=== PATIENT | female | born 1945 | race Caucasian/White ===

== ENCOUNTER → 2018-01-18 14:15 | Outpatient (CLI) | payer MEDICARE, BC ==
[2014-08-02 12:11] VITALS: BMI 48.0
[~2018-01-18 14:15] MED LIST: BAYER CHEWABLE81 MG PO; CYMBALTA60 MG PO; DIOVAN320 MG PO; K-TAB10 MEQ PO; LASIX40 MG PO; LEVAQUIN750 MG PO; ULTRAM50 MG PO
[2018-01-19 11:17] LABS: IMMUNOGLOBULIN A 17 mg/dL (64-422); IMMUNOGLOBULIN G 263 mg/dL (700-1600); IMMUNOGLOBULIN M 7 mg/dL (26-217)
[2018-01-20 20:08] LABS: IMMUNOGLOBULIN E <2 IU/mL (0-100)
== END | disposition home or self-care (01) ==
LOC: D.RAD 14:15
PROVIDERS: Allergy & Immunology
DX: J32.9 Chronic sinusitis, unspecified (principal)

== ENCOUNTER → 2018-09-27 09:35 | Outpatient (CLI) | payer MEDICARE, BC ==
[2014-08-02 12:11] VITALS: BMI 48.0
== END | disposition home or self-care (01) ==
LOC: D.RT 07-28 08:00 → D.RAD 07-28 08:45 → D.RT 07-28 13:00 → D.RAD 01:45
PROVIDERS: ATTEND Nurse Practitioner Acute Care
DX: J45.909 Unspecified asthma, uncomplicated (principal)

== ENCOUNTER → 2019-01-17 09:26 | Outpatient (CLI) | payer MEDICARE, BC ==
[2014-08-02 12:11] VITALS: BMI 48.0
== END | disposition home or self-care (01) ==
LOC: D.RAD 09:26
PROVIDERS: ATTEND Internal Medicine Pulmonary Disease
DX: J45.909 Unspecified asthma, uncomplicated (principal)

== ENCOUNTER 2020-09-03 07:45 | Day surgery (SDC) | payer MEDICARE, BC ==
[~2020-09-03] VITALS: Ht 160 cm; Wt 125.0 kg
[2020-09-03 08:14] LABS: BASOPHILS 0.2 % (0-2); EOSINOPHILS 4.6 % (0-7); HEMATOCRIT 43.3 % (36.0-48.0); LYMPHOCYTES 68.5 % (15-50); MCH 26.9 pg (26.0-34.0); MCHC 32.4 g/dL (31.0-37.0); MCV 83.2 fL (80.0-100.0); MEAN PLATELET VOLUME 7.7 fL (7.4-10.4); MONOCYTES 6.2 % (2-11); NEUTROPHILS 20.5 % (40-80); PLATELET COUNT 211 10x3/uL (130-400); RDW 15.2 % (11.5-14.5); WBC 14.8 10x3/uL (4.8-10.8)
[2020-09-03 08:20] LABS: ANION GAP 11.4 mmol/L (8-16); CALCIUM 8.6 mg/dL (8.5-10.1); CARBON DIOXIDE 27.6 mmol/L (21.0-32.0); CREATININE - SERUM 0.8 mg/dL (0.6-1.3)
[2020-09-03 08:21] LABS: APTT 24.4 SECONDS (22.8-39.4); INR 1.05 (0.85-1.17); PROTIME 12.7 SECONDS (11.6-15.0)
[2020-09-03] MEDS ORDERED: TOPROL XL200 MG PO (08:59)
[2020-09-03] MEDS ORDERED: TESSALON PERLE100 MG PO (08:59)
[2020-09-03] MEDS ORDERED: CELEBREX200 MG PO (09:00)
[2020-09-03] MEDS ORDERED: IPRATROPIUM BRO15 M1 NASAL (09:01)
[2020-09-03] MEDS ORDERED: SPIRIVA RESPIMAT4 G1 INH (09:02)
[2020-09-03] MEDS ORDERED: FEXOFENADINE H180 MG PO (09:03)
[2020-09-03] MEDS ORDERED: RESTORIL15 MG (09:04)
[2020-09-03] MEDS ORDERED: HYDROCHLOROTH12.5 M1 PO (09:05)
[2020-09-03] MEDS ORDERED: PEPCID AC20 MG (09:05)
[2020-09-03] MEDS ORDERED: SINGULAIR10 MG PO (09:06)
[2020-09-03] MEDS ORDERED: SYNTHROID125 MCG PO (09:07)
[2020-09-03] MEDS ORDERED: SYSTANE (09:09)
[2020-09-03 09:24] VITALS: Ht 160 cm; Wt 125.0 kg
--- NOTE | 2020-09-03 12:05 | NUR ---
1200 PT POINT [facility] AND DENIES PAIN AT THIS TIME
--- NOTE | 2020-09-03 13:09 | NUR ---
1245 IV REMOVED AND PRESSURE HELD. INSTRUCTIONS GIVEN AND PT DOING WELL. TOLERATING FLUIDS WELL. NO SWELLING OR BLEEDING AT SITE
== END 2020-09-03 13:27 | disposition home or self-care (01) ==
LOC: D.CT 07:45
PROVIDERS: Radiology Diagnostic Radiology; ATTEND Internal Medicine Hematology & Oncology
DX: D72.820 Lymphocytosis (symptomatic) (principal)